=== PATIENT | female | born 1975 | race Hispanic/Latino ===

== ENCOUNTER 2019-03-30 09:42 | Outpatient (RCR) | payer OTHER | END 2019-03-31 | LOC: PT 09:42 | PROVIDERS: ATTEND Specialist | DX: S83.411D Sprain of medial collateral ligament of right knee, subsequent encounter (principal); M25.561 Pain in right knee; R26.2 Difficulty in walking, not elsewhere classified; M62.81 Muscle weakness (generalized) ==

== ENCOUNTER 2019-04-27 15:00 | Outpatient (RCR) | payer OTHER | END 2019-04-30 | LOC: PT 15:00 | PROVIDERS: ATTEND Specialist | DX: S83.411D Sprain of medial collateral ligament of right knee, subsequent encounter (principal); M25.561 Pain in right knee; R26.2 Difficulty in walking, not elsewhere classified; M62.81 Muscle weakness (generalized) | CPT/HCPCS: 97139 ==

== ENCOUNTER → 2023-12-24 | Outpatient (REF) | payer BC ==
[~2023-12-24] MED LIST: FUROSEMIDE INJ 10 MG/ML 4 ML VIAL ONE
== END ==
LOC: NM 13:34
PROVIDERS: ATTEND Urology
DX: N13.30 Unspecified hydronephrosis (principal)
CPT/HCPCS: 78708; A9562; J1940